=== PATIENT | male | born 2000 ===

== ENCOUNTER 2024-01-17 16:16 | Outpatient (REF) | payer MEDICAID, SELFPAY ==
[2024-01-17 16:56] LABS: Absolute Basophil Count 0.02 10^3/uL; Absolute Eosinophil Count 0.19 10^3/uL; Absolute Lymphocyte Count 2.52 10^3/uL; Absolute Neutrophil Count 2.93 10^3/uL; Basophils % 0.3 %; Eosinophils % 3.1 %; HCT 37.8 %; Lymphocytes % 41.6 %; MCH 32.2 pg; MCHC 34.4 %; MCV 94 fL; MPV 11.2 fL; Monocytes % 6.6 %; Neutrophils % 48.4 %; Platelet Count 195 10^3/uL; RBC 4.04 10^6/uL; RDW 11.7 %; RDW-SD 40.4 fL; WBC 6.06 10^3/uL
[2024-01-17 17:03] LABS: ALT 27 U/L; AST 17 U/L; Albumin 4.4 g/dL; Alkaline Phosphatase 43 U/L; Anion Gap 11.5 mmol/L; BUN 13 mg/dL; CO2 26.5 mmol/L; CREATININE 0.7 mg/dL; Calcium 9.6 mg/dL; Chloride 105 mmol/L; Glucose 85 mg/dL; Potassium 3.3 mmol/L; Sodium 143 mmol/L; Total Protein 7.2 g/dL
[2024-01-17 17:24] LABS: D-Dimer 128 ng/mlFEU
== END 2024-01-17 16:17 | disposition home or self-care (01) ==
LOC: LBN 16:16
PROVIDERS: Visit Provider Physician Assistant Surgical
DX: R04.2 Hemoptysis (principal)
CPT/HCPCS: 80053; 85025; 85379

== ENCOUNTER 2024-01-21 02:05 | Outpatient (CLI) | payer MEDICAID, SELFPAY ==
[2024-01-21] MEDS: Methacholine 100 MG VIAL IH (16:37)
[2024-01-21] MEDS: Albuterol HFA 18 GM 200 PUFF INH IH (16:38)
[2024-01-21] MEDS: Inhaler, Assist Device 1 EACH MC (16:38)
--- NOTE | 2024-01-23 08:32 | W.PFT ---
Date of service: 01/23/24 Time of Service: 08:39 Pulmonary Function Test Result Requesting Provider Abbie GARCIA Indications: Hemoptysis, childhood asthma, current smoker, vapor of marijuana and nicotine, seasonal allergies. No pulmonary medications. Interpretation Spirometry: This is a methacholine challenge test, with baseline spirometry, and serial increased doses of methacholine challenge according to ATS protocols, and postbronchodilator assessment. 1. Results may be affected by patient suboptimal effort throughout the testing. 2. There was a positive response to methacholine, with a 20% drop in FEV1 at 4.0 mg/mL of methacholine. 3. The postbronchodilator spirometry test returned to normal. Baseline and postbronchodilator spirometry was normal. Impression Positive methacholine challenge test, in a patient whose effort was suboptimal and whose spirometry did not meet [employer] [employer] standards of spirometry. Therefore, this could be a false positive result. Clinical correlation is recommended with close assessment of response to any treatment which may be instituted. Clinical Correlation therefore is recommended.
== END 2024-01-21 02:06 | disposition home or self-care (01) ==
PROVIDERS: Visit Provider Physician Assistant Surgical
DX: R04.2 Hemoptysis (principal); J30.2 Other seasonal allergic rhinitis
CPT/HCPCS: 00123; 94060; 94070; 94726; 94729; 94010; J7674

== ENCOUNTER 2024-03-13 21:56 | Emergency (ER) | payer MEDICAID, SELFPAY ==
--- NOTE | 2024-03-13 21:45 | RT.EKG_ITS ---
APPROVED REPORT Exam: Resting ECG Reason for Exam: c/p Patient Location: E HR:90 bpm ECG Measurements Heart Rate 90 AXIS DC 154 P 62 QRSd 77 QRS 58 QT 347 T 52 QTc 425 Conclusion Sinus rhythm, rate 90 No interval abnormalities T wave inversion V1, V2 No STEMI, question benign early repol pattern III, III
[2024-03-13 21:58] VITALS: PULSE 94; RESP 18; O2SAT 100
--- NOTE | 2024-03-13 22:00 | DI.RAD_ITS ---
Exam(s) XR CHEST 2V PA LATERAL EXAM: XR CHEST 2V PA LATERAL CLINICAL HISTORY: R sided CP TECHNIQUE: 2D digital imaging was performed. Two views. COMPARISON: No exams were available for comparison FINDINGS: HEART: Normal size. Aorta: Not dilated. PULMONARY VASCULATURE: Normal. MEDIASTINUM: Unremarkable. LUNGS: Clear. PLEURAL SPACE: No pleural effusion or pneumothorax. BONE:Unremarkable for age. SOFT TISSUES: Unremarkable. IMPRESSION: No acute abnormality. DATA REPOSITORY: RADIATION DOSE DELIVERED:
[2024-03-13 22:01] VITALS: BP 128/71; PULSE 98; RESP 18; TEMP 36.8; O2SAT 100
[2024-03-13 22:03] VITALS: RESP 18
--- NOTE | 2024-03-13 22:18 | W.ED.GENAD ---
Discharge Plan Disposition Patient Disposition: Home Condition: Good Discharge Details Clinical Impression: Chest pain Primary Care Provider: Unknown,Unknown ED Provider: Grecia Shaffer Home Meds and New Rx's Prescriptions: Continued budesonide-formoterol [Symbicort] 80-4.5 mcg/actuation HFA aerosol inhaler 2 puff inhalation BID Qty: 10.2 0RF ferrous gluconate 324 mg (38 mg iron) tablet 324 mg PO DAILY cholecalciferol (vitamin D3) 50 mcg (2,000 unit) tablet,disintegrating PO testosterone 20.25 mg/1.25 gram (1.62 %) gel in metered-dose pump 1 pump topical DAILY Rx Instructions: apply 1 pump amount over max area of ONE upper arm and shoulder Discharge Instructions Additional Instructions: Please call your primary care provider first thing in the morning to schedule follow-up appointment Your cardiac workup today was very reassuring. Your chest x-ray and labs were all unremarkable. This may be getting your symptoms are likely caused by anxiety. I recommend that you start taking the fluoxetine tomorrow morning as prescribed. Continue working with your counselor for depression/anxiety management. I recommend mindfulness techniques such as meditation as well. Return to emergency care if you develop new episodes of passing out, severe chest pains, difficulty breathing, or if you are very worried and need to be rechecked again immediately. Referrals: Yumiko Muhammad [ [facility] STAFF PHYSICIAN] - [facility] General Date/Time Provider Initiated Documentation: 03/13/24 22:04. [facility] Narrative: Ciro is a 23-year-old patient with history of allergy induced asthma, testosterone use, and depression/anxiety who presents to the emergency department today for evaluation of right-sided chest pain. He reports that he had a Monster drink yesterday, has been feeling jittery since then. This morning he woke up with a right-sided chest pain that feels like a pulling sensation when he breathes deep, radiates to the right axilla. He has been worsening throughout the day. He has not taken any medications for it. He reports that around 8 PM tonight he had an episode where he was walking and all of a sudden he felt nauseated, dizzy, warm and sweaty all over with worsening chest discomfort. This resolved with rest. He reports he has recently been in good health, denies fever/chills, congestion, sore throat, cough, vomiting, change in p.o. intake, abdominal pain, change in bowel or bladder function. No family history of connective tissue disorders, sudden at a young age, or blood clots. He denies history of cancer, recent surgery/immobility, estrogen use, blood clots, pneumothorax. He does smoke. Strong family history of anxiety, mother says that they do have a history of panic attacks in the family. He is restarting fluoxetine in the morning for worsening depression. He does have a counselor that he follows up with regularly via phone. Physical exam very reassuring. Patient is alert and oriented, no acute distress. Easy work of breathing, lung sounds clear bilaterally. No tenderness to palpation of anterior chest wall or rashes/lesions/ecchymosis. Normal heart sounds. Abdomen soft, nondistended, nontender to palpation. No pedal edema or calf swelling/tenderness. DDx includes was not limited to: Anxiety, ACS, GERD, esophageal spasm, spontaneous pneumothorax, muscle spasm. No red flags concerning for pneumonia at this time based on history and presentation. PERC negative. HEART score 1 (smoking), indicating low risk of MACE. I independently interpreted the following tests: EKG reassuring, normal sinus rhythm rate 90, normal intervals, no changes consistent with acute ischemia or Brugada syndrome. CBC, CMP, troponin all reassuring. No indication for repeat troponin, as symptoms have been present longer than 3 hours. CXR reassuring, no obvious pneumothorax or infiltrates. While in the emergency department Ciro received lorazepam for anxiety and famotidine for possible GERD symptoms. Overall workup today reassuring. Likely anxiety. Reviewed discharge instructions with patient and his mother, including importance of follow-up with PCP and red flags indicating need for return to emergency care. They are agreeable with plan of care. Related Data Home Medications ?Medication ?Instructions ?Recorded ?Confirmed cholecalciferol (vitamin D3) 50 mcg PO 01/17/24 03/11/24 mcg (2,000 unit) disintegrating tablet ferrous gluconate 324 mg (38 mg 324 mg PO DAILY 01/17/24 03/11/24 iron) tablet testosterone 1 pump topical DAILY 01/17/24 03/11/24 budesonide-formoterol HFA 80 2 puff inhalation BID #10.2 grams 03/10/24 03/10/24 mcg-4.5 mcg/actuation aerosol inhaler (Symbicort) Previous Rx's ?Medication ?Instructions ?Recorded budesonide-formoterol HFA 80 2 puff inhalation BID #10.2 grams 03/10/24 mcg-4.5 mcg/actuation aerosol inhaler (Symbicort) Allergies Allergy/AdvReac Type Severity Reaction Status Date / Time No Known Drug Allergies Allergy Mild Other (See Verified 03/10/24 13:52 Comment) pollen Allergy Unknown Unknown Uncoded 03/10/24 14:02 General Stated Complaint: Chest Pain ELIA: 3 Review of Systems Narrative: see HPI Exam Const General: cooperative, healthy appearing, comfortable and well developed Nutritional Appearance: thin Orientation: alert and oriented x3 Chest Chest: normal inspection of the chest and normal palpation of entire chest wall Resp Effort & Inspection: normal respiratory effort and able to speak in complete sentences Auscultation: clear to auscultation bilaterally Cardio Rate: regular rate Rhythm: regular rhythm GI Inspection: normal to inspection and non-distended Palpation: soft, not rigid and nontender Skin General skin exam: no rashes or lesions noted Extrem General: normal to inspection and no pedal edema Course Vital Signs Vital signs: Vital Signs Pulse 94 03/13/24 21:58 Respiratory Rate 18 03/13/24 21:58 Pulse Oximetry 100 03/13/24 21:58 Temperature 36.8 C 03/13/24 22:01 Temperature Source Skin 03/13/24 22:01 Pulse 98 03/13/24 22:01 Respiratory Rate 18 03/13/24 22:03 Respiratory Effort Normal 03/13/24 22:03 Respiratory Depth Normal 03/13/24 22:03 Respiratory Pattern Normal 03/13/24 22:03 Blood Pressure 128/71 03/13/24 22:01 Blood Pressure Position Sitting 03/13/24 21:58 Pulse Oximetry 100 03/13/24 22:01 Oxygen Delivery Method Room Air 03/13/24 22:01 Oxygen Flow Rate 0 03/13/24 22:01 Medical Decision Making Imaging Data Radiologic Study: Radiologist's impression: PROCEDURE INFORMATION: Exam: XR Chest Exam date and time: 03/13/2024 10:47 PM Age: 23 years old Clinical indication: Pain; Right-sided; Additional info: R sided cp TECHNIQUE: Imaging protocol: Radiologic exam of the chest. Views: 2 views. COMPARISON: No relevant prior studies available. FINDINGS: Lungs: Unremarkable. No consolidation. Pleural spaces: Unremarkable. No pleural effusion. No pneumothorax. Heart/Mediastinum: Unremarkable. No cardiomegaly. Bones/joints: Unremarkable. IMPRESSION: No evidence for acute abnormality in the chest. Quality:SDOH Health Related Social Needs: No Data to Display PFSH All Active Problems (Updated 03/13/24 @ 22:57 by Grecia Jones) Chest pain (Acute) Former cigarette smoker (Acute) Vapes nicotine containing substance (Acute) Marijuana smoker (Acute) Hemoptysis (Acute) Ventricular ectopy (Acute) Social History (Updated 01/15/24 @ 08:41 by Zakiya De La O) Smoking/Tobacco Use Status: Current every day Tobacco Type: pipe Smoking risk assessment performed?: Yes Alcohol Intake: current Alcohol Intake frequency: holidays/special occasions only Substance use type: marijuana
[2024-03-13 22:29] LABS: Abs Immature Grans 0.02 10^3/uL; Absolute Basophil Count 0.03 10^3/uL; Absolute Eosinophil Count 0.28 10^3/uL; Absolute Lymphocyte Count 2.44 10^3/uL; Absolute Monocyte Count 0.54 10^3/uL; Absolute Neutrophil Count 4.36 10^3/uL; Basophils % 0.4 %; Eosinophils % 3.7 %; HCT 37.3 %; HGB 12.8 g/dL; Immature Grans % 0.3 %; Lymphocytes % 31.8 %; MCH 32.7 pg; MCHC 34.3 %; MCV 95 fL; MPV 10.4 fL; Neutrophils % 56.8 %; Platelet Count 202 10^3/uL; RBC 3.92 10^6/uL; RDW 11.9 %; RDW-SD 41.1 fL; WBC 7.67 10^3/uL
[2024-03-13] MEDS: Famotidine 20 MG/2 ML VIAL IVP (22:36)
[2024-03-13] MEDS: LORazepam 0.5 MG TAB PO (22:36)
[2024-03-13 22:50] LABS: ALT 22 U/L (16-63); AST 12 U/L (15-37); Albumin 4.2 g/dL (3.4-5.0); Alkaline Phosphatase 42 U/L (46-116); Anion Gap 11.3 mmol/L (3-11); BUN 12 mg/dL (7-18); Bilirubin, Total 0.72 mg/dL (0.2-1.0); CO2 26.7 mmol/L (21.0-32.0); CREATININE 0.7 mg/dL (0.70-1.30); Calcium 9.6 mg/dL (8.5-10.1); Chloride 107 mmol/L (98-107); Glucose 97 mg/dL (74-106); Potassium 3.4 mmol/L (3.5-5.1); Sodium 145 mmol/L (136-145); Total Protein 7.5 g/dL (6.4-8.2); Troponin I 5 ng/L (<or=76)
--- NOTE | 2024-03-13 23:12 | DI.VRAD_ITS ---
PROCEDURE INFORMATION: Exam: XR Chest Exam date and time: 03/13/2024 10:47 PM Age: 23 years old Clinical indication: Pain; Right-sided; Additional info: R sided cp TECHNIQUE: Imaging protocol: Radiologic exam of the chest. Views: 2 views. COMPARISON: No relevant prior studies available. FINDINGS: Lungs: Unremarkable. No consolidation. Pleural spaces: Unremarkable. No pleural effusion. No pneumothorax. Heart/Mediastinum: Unremarkable. No cardiomegaly. Bones/joints: Unremarkable. IMPRESSION: No evidence for acute abnormality in the chest. Dictated and Authenticated by: Marisel Benites MD. Ordering:WARREN Paige MD
[2024-03-13 23:58] VITALS: BP 107/63; TEMP 36.7; O2SAT 100
== END 2024-03-14 | disposition home or self-care (01) ==
PROVIDERS: Emergency Provider Nurse Practitioner Family
DX: R07.9 Chest pain, unspecified (principal); J45.909 Unspecified asthma, uncomplicated; F32.A Depression, unspecified; F41.9 Anxiety disorder, unspecified; F17.290 Nicotine dependence, other tobacco product, uncomplicated
CPT/HCPCS: 80053; 93005; 96374; 99284; 71046; 83735; 84484; 85025; 93010; 99283

== ENCOUNTER 2024-05-21 02:20 | Outpatient (CLI) | payer MEDICAID, SELFPAY ==
--- NOTE | 2024-05-21 | DI.RAD_ITS ---
Exam(s) XR CHEST 2V PA LATERAL EXAM: XR CHEST 2V PA LATERAL CLINICAL HISTORY: HEMOPTYSIS,R04.2 TECHNIQUE: 2D digital imaging was performed of the chest. Two images were obtained. PA and lateral views were obtained. COMPARISON: CR,XR XR CHEST 2V PA LATERAL from 03/13/2024 FINDINGS: MEDIASTINUM: Normal. HEART: Normal. PULMONARY VASCULATURE: Normal. LUNGS: Clear. PLEURAL SPACE: No pleural effusion or pneumothorax. BONE:Within normal limits for the patient's age. OTHER FINDINGS:Normal. IMPRESSION: No acute pulmonary findings. DATA REPOSITORY: RADIATION DOSE DELIVERED:
== END 2024-05-21 02:40 ==
LOC: DI 02:20
PROVIDERS: PCP Nurse Practitioner Family; Visit Provider Nurse Practitioner Family
DX: R04.2 Hemoptysis (principal)
CPT/HCPCS: 71046

== ENCOUNTER 2024-06-25 08:17 | Outpatient (CLI) | payer MEDICAID, SELFPAY ==
--- NOTE | 2024-06-25 08:15 | RT.EKG_ITS ---
APPROVED REPORT Exam: Resting ECG Reason for Exam: cardiac evaluation Patient Location: O HR:77 bpm ECG Measurements Heart Rate [address] 143 P 50 QRSd 83 QRS 58 QT 361 T 54 QTc 409 Conclusion Sinus rhythm...normal P axis, V-rate 50- 99 Baseline wander in lead(s) II,III,aVF Normal Electrocardiogram
== END 2024-06-25 08:18 | disposition home or self-care (01) ==
LOC: DI.CARD 08:20
PROVIDERS: PCP Nurse Practitioner Family; Visit Provider Registered Nurse
DX: I49.3 Ventricular premature depolarization (principal)
CPT/HCPCS: 93010

== ENCOUNTER 2024-07-03 00:21 | Outpatient (CLI) | payer MEDICAID, SELFPAY ==
--- NOTE | 2024-07-03 | ETT_ITS ---
APPROVED REPORT Exam: Exercise Treadmill Patient Location: Out-Patient Room/Bed: Stress Nurse: Grecia Sandra RN Ordering Provider:JULIO CÉSAR ANTONIO, Contact Number: BMI: 19.63 Baseline Rhythm: Sinus Tachycardia Indications: chest pain Medical History Medical History: RYAN, transsexualism, iron deficiency anemia, asthma, ventricular ectopy, vapes nicot ine containing products, marijuana smoker, hemoptysis, ADHD, depression Cardiac Medications: symbicort, ferrous sulfate, fluoxetine, hydroxyzine, omeprazole, quetiapine, clover tosterone Allergies: pollen extracts, lamotrigine, venlafexine Cardiac Risk Factors: family hx, asthma, smoker Previous Cardiac Procedures: none Pretest Chest Pain Characteristics: No chest pain Exercise History: Physically active Physical Disabilities: none Lung Sounds: Clear to auscultation Heart Sounds: Tachycardia Stress Test Details Test: Exercise stress testing was performed using a Andres protocol. Rest Stress HR Resting HR Supine: 101 bpm Max Heart Rate (APMHR): 197 bpm Resting HR Standin bpm Target HR (85% APMHR): 167 bpm Max HR Achieved: 171 bpm % of APMHR: 87 Recovery HR: 108 bpm HR response to stress: Normal HR response to stress BP Resting BP Supine: 112/60 mmHg Resting BP Standin/62 mmHg Max BP: 140/52 mmHg Recovery BP: 118/60 mmHg BP response to stress: Normal blood pressure response to stress. ECG Resting ECG: Sinus Tachycardia Ectopy: none Stress ECG: Sinus Tachycardia ST Change: No significant ST segment changes noted Arrhythmia: None Recovery ECG: Sinus Tachycardia Recovery ST Change: No significant ST segment changes noted Recovery Arrhythmia: None Clinical Reason for Termination: Target HR Achieved Stress Symptoms: none Exercise duration: 11 min58 sec Highest Stage Reached: Stage 4: 4.2 mph at 16% grade. Exercise capacity: 13.48 METs Angina Score: None Morton Treadmill Score: 11.3 Rate Pressure Product: [id number] Stress ECG Conclusion 1. Resting electrocardiogram was normal 2. Patient exercised on the Anrdes protocol completed a workload of 11.5 METS 3. Normal heart rate and blood pressure response to exercise. The patient achieved 87% of maximal pr edicted heart rate for age 4. There was no electrocardiographic evidence of myocardial ischemia 5. No dysrhythmias Morton Treadmill Score is 11.3 which is Low risk. Stress Test Summary STAGE Time (mins) Speed (mph) Grade (%) HR BP SpO2 SYMPTOMS METS Supine 101 112/60 Standing 96 110/60 1 3 1.7 10 111 128/58 98 4.5 2 6 2.5 12 122 128/60 98 7 3 9 3.4 14 141 132/56 98 10 4 12 4.2 16 169 13 1 min recovery 136 140/52 96 3 min recovery 110 138/60 6 min recovery 108 118/60 96
== END 2024-07-03 00:41 ==
LOC: DI 00:21
PROVIDERS: PCP Nurse Practitioner Family; Visit Provider Internal Medicine Cardiovascular Disease
DX: R07.9 Chest pain, unspecified (principal)
CPT/HCPCS: 93017

== ENCOUNTER 2024-07-22 06:56 | Outpatient (CLI) | payer MEDICAID, SELFPAY ==
--- NOTE | 2024-07-22 12:47 | W.CARDEVENT ---
Date of service: 07/22/24 Time of Service: 12:48 Cardiac Event Recorder Referring Provider:: Kitty Nielsen Indications:: Tachycardia Cardiac Event Note: This is a cardiac event monitor. Patient was monitored for 17 days and 8 hours. Predominant rhythm was sinus with an average heart rate overall of 88. Minimum was 56, maximum 174 There were no significant ventricular dysrhythmias. There were rare atrial premature beats. Sinus pauses were noted. These generally occurred in the evening between 7 and 10 PM. Shortness was 3 seconds, longest was 4.6. None appear to be symptomatic Symptoms were reported which overall correlated to sinus rhythm
== END 2024-07-22 06:57 | disposition home or self-care (01) ==
LOC: CARDOPNVT 06:56
PROVIDERS: PCP Nurse Practitioner Family; Visit Provider Internal Medicine Cardiovascular Disease
DX: R00.0 Tachycardia, unspecified (principal)
CPT/HCPCS: 93272